=== PATIENT | female | born 1970 | race Caucasian/White ===

== ENCOUNTER → 2016-10-08 | Outpatient (CLI) | payer OTHER ==
[2016-10-08 18:36] LABS: Basophils % (A) 0 %; CH 27.8; CHCM 31.2; Eosinophils # (A) 0.2 k/uL (0-0.7); Eosinophils % (A) 2 %; HCT 45.1 % (34.0-46.0); HDW 2.22; HGB 14.2 gm/dL (11.4-16.0); Luc # (Auto) 0.17; Luc % (Auto) 2; Lymphocytes # (A) 2.1 k/uL (1.0-4.8); Lymphocytes % (A) 28 %; MCH 28.3 pg (25.0-35.0); MCHC 31.6 g/dL (31.0-37.0); MCV 89.5 fL (80.0-100.0); Mean Platelet Volume 8.2; Monocytes # (A) 0.4 k/uL (0-1.0); Monocytes % (A) 5 %; Neutrophils # (A) 4.8 k/uL (1.3-7.7); Neutrophils % (A) 63 %; RBC 5.03 m/uL (3.80-5.40); RDW 12.9 % (11.5-15.5); WBC 7.6 k/uL (3.8-10.6); WBC (Perox) 7.69
[2016-10-08 18:44] LABS: ALT 63 U/L (9-52); AST 43 U/L (14-36); Alkaline Phosphatase 154 U/L (38-126); Anion Gap 14 mmol/L; Blood Urea Nitrogen 14 mg/dL (7-17); Carbon Dioxide 28 mmol/L (22-30); Chloride 101 mmol/L (98-107); Cholesterol 216 mg/dL (<200); Glucose 81 mg/dL (74-99); HDL Cholesterol 76 mg/dL (40-60); Non-African American GFR(MDRD) >60 (>60 ml/min/1.73 sqM); Potassium 4.5 mmol/L (3.5-5.1); Sodium 143 mmol/L (137-145); Total Bilirubin 0.5 mg/dL (0.2-1.3); Total Protein 8.1 g/dL (6.3-8.2); Triglycerides 69 mg/dL (<150)
[2016-10-08 20:13] LABS: Hemoglobin A1C 5.4 % (4.2-6.1)
== END | disposition home or self-care (01) ==
LOC: MMGSC 11:49
PROVIDERS: ATTEND Family Medicine
DX: Z02.6 Encounter for examination for insurance purposes (principal)
CPT/HCPCS: 36415; 80053; 80061; 83036; 84439; 84443; 85025

== ENCOUNTER → 2016-10-16 | Outpatient (CLI) | payer OTHER | END | disposition home or self-care (01) | LOC: MMGSC 17:05 | PROVIDERS: ATTEND Family Medicine | DX: Z00.00 Encounter for general adult medical examination without abnormal findings (principal) | CPT/HCPCS: 80307 ==

== ENCOUNTER → 2016-11-11 | Outpatient (CLI) | payer OTHER ==
[2016-11-11 14:54] VITALS: BMI 38.9
== END | disposition home or self-care (01) ==
LOC: DBWHC3 12:59
PROVIDERS: ATTEND Family Medicine
DX: R94.5 Abnormal results of liver function studies (principal)
CPT/HCPCS: 97802

== ENCOUNTER → 2017-08-06 | Outpatient (CLI) | payer OTHER ==
--- NOTE | 2017-08-06 20:34 | MR ---
EXAMINATION TYPE: MR knee RT wo con DATE OF EXAM: 08/06/2017 COMPARISON: Plain film 07/17/2017 HISTORY: Pain in right knee TECHNIQUE: Multiplanar, multisequence imaging of the right knee is performed without IV contrast. FINDINGS: MEDIAL MENISCUS: Posterior horn of the medial meniscus shows some linear increased signal which may e xtend to the articular surface LATERAL MENISCUS: Posterior horn of the lateral meniscus shows some linear increased signal, sagittal image 19, difficult to exclude extension to the articular surface at the level of the body CRUCIATE LIGAMENTS: The anterior and posterior cruciate ligaments are intact and unremarkable. COLLATERAL LIGAMENTS: The medial collateral ligament and lateral collateral ligament complex are inta ct and unremarkable. EXTENSOR MECHANISM: Visualized quadriceps and patellar tendons are intact. EFFUSION: Small suprapatellar joint effusion POPLITEAL CYST: Small semimembranosus gastrocnemius cyst is present TRICOMPARTMENT SPACES: Maintained. 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 OTHER: Some mild subcutaneous edema is present medially IMPRESSION: Findings suspicious for tears within the posterior horn of the medial meniscus, possibly lateral meni scus body as described. Some chondromalacia suspected in the posterior patella. Joint effusion. Small semimembranosus gastrocnemius cyst, edema the subcutaneous tissues especially at the medial aspect a nteriorly
== END ==
LOC: RADMRIMAIN 18:08
PROVIDERS: ATTEND Orthopaedic Surgery
DX: M94.261 Chondromalacia, right knee (principal); M25.461 Effusion, right knee

== ENCOUNTER 2017-11-22 11:47 | Emergency (ER) | payer OTHER ==
[2017-11-22 12:00] VITALS: TEMP 97.9
[2017-11-22] MEDS ORDERED: ALBUTEROL NEBULIZED 2.5 MG/3 ML INHALATION STA (12:13)
--- NOTE | 2017-11-22 12:33 | ED ---
URI HPI - General Chief Complaint: Upper Respiratory Infection Stated Complaint: URI Time Seen by Provider: 11/22/17 12:03 Source: patient, RN notes reviewed Mode of arrival: ambulatory Limitations: no limitations - History of Present Illness Initial Comments: This is a 47-year-old female presents emergency Department chief complaint cough congestion for 6 days. Patient states started some and I was seen in urgent care on Friday was given azithromycin and Tamiflu. Patient states that she didn't medications but has not had any change in her symptoms. She denies using any ntob-ren-[id number] cough and cold medications. She states that she just wants feel better and she has not tried anything other than prescriptions given. Patient reports no fever no chills. Denies any chest pain, shortness breath, nausea, vomiting. Denies any pleuritic chest pain. - Related Data Home Medications Medication Instructions Recorded Confirmed Omeprazole [PriLOSEC] 20 mg PO BID PRN 06/29/15 06/30/15 Previous Rx's Medication Instructions Recorded Promethaz-Cod 6.25-10 mg/5 ml 5 ml PO Q6HR PRN #120 ml 11/22/17 [Phenergan with Codeine] predniSONE 50 mg PO DAILY #5 tab 11/22/17 Allergies Allergy/AdvReac Type Severity Reaction Status Date / Time No Known Allergies Allergy Verified 06/29/15 14:46 Review of Systems ROS Statement: Those systems with pertinent positive or pertinent negative responses have been documented in the HPI. ROS Other: All systems not noted in ROS Statement are negative. Past Medical History Past Medical History: GERD/Reflux History of Any Multi-Drug Resistant Organisms: None Reported Past Surgical History: Orthopedic Surgery Additional Past Surgical History / Comment(s): right knee,nasal polyps removed Past Anesthesia/Blood Transfusion Reactions: No Reported Reaction Past Psychological History: No Psychological Hx Reported Smoking Status: Never smoker Past Alcohol Use History: None Reported Past Drug Use History: None Reported - Past Family History Father Family Medical History: Cancer Additional Family Medical History / Comment(s): lung Mother Family Medical History: No Reported History General Exam Limitations: no limitations General appearance: alert, in no apparent distress Head exam: Present: atraumatic, normocephalic, normal inspection Eye exam: Present: normal appearance, PERRL, EOMI. Absent: scleral icterus, conjunctival injection, periorbital swelling ENT exam: Present: normal exam, mucous membranes moist Neck exam: Present: normal inspection, full ROM. Absent: tenderness, meningismus, lymphadenopathy Respiratory exam: Present: normal lung sounds bilaterally. Absent: respiratory distress, wheezes, rales, rhonchi, stridor Cardiovascular Exam: Present: regular rate, normal rhythm, normal heart sounds. Absent: systolic murmur, diastolic murmur, rubs, gallop, clicks GI/Abdominal exam: Present: soft, normal bowel sounds. Absent: distended, tenderness, guarding, rebound, rigid Skin exam: Present: warm, dry, intact, normal color. Absent: rash Course Vital Signs 11/22/17 11/22/17 11/22/17 11:56 12:25 12:28 Temperature 97.9 F Pulse Rate 111 H 110 H Respiratory 18 20 Rate Blood Pressure 115/73 O2 Sat by Pulse 97 Oximetry 11/22/17 12:36 Temperature Pulse Rate 112 H Respiratory Rate Blood Pressure O2 Sat by Pulse Oximetry Medical Decision Making - Medical Decision Making This a 47-year-old female Returned to Complaint of Cough Congestion. Patient Has Been Sick for 6 Days She Was Treated Initially Wasn't Referred for 4 Hours. Patient Chest X-Ray Is Negative This Time. Patient Has Been on azithromycin and Tamiflu. Patient most likely has viral bronchitis. Patient sent steroids, cough suppressant return parameters were discussed. Disposition Clinical Impression: Acute viral bronchitis Disposition: HOME SELF-CARE Condition: Stable Instructions: Acute Bronchitis (ED) Additional Instructions: Please return to the Emergency Department if symptoms worsen or any other concerns. Prescriptions: predniSONE 50 mg PO DAILY #5 tab Promethaz-Cod 6.25-10 mg/5 ml [Phenergan with Codeine] 5 ml PO Q6HR PRN #120 ml PRN Reason: Cough Referrals: Autumn Bang MD [Primary Care Provider] - 1-2 days Time of Disposition: 12:52
--- NOTE | 2017-11-22 12:36 | XR ---
EXAMINATION TYPE: XR chest 2V DATE OF EXAM: 11/22/2017 HISTORY: Cough/pain. REFERENCE: Previous study dated 09/21/2012. FINDINGS: The lungs remain clear. Pleural spaces are clear. The heart is not enlarged. IMPRESSION: NORMAL CHEST.
[2017-11-22 13:25] VITALS: BP 116/63; PULSE 104; RESP 16
== END 2017-11-22 13:25 | disposition home or self-care (01) ==
LOC: EC 11:47
DX: J20.8 Acute bronchitis due to other specified organisms (principal)
CPT/HCPCS: 71046; 94640; 99283

== ENCOUNTER → 2018-07-15 | Outpatient (CLI) | payer OTHER ==
[2018-07-15 09:04] LABS: HGB 13.4 gm/dL (11.4-16.0); MCH 27.8 pg (25.0-35.0); MCHC 31.9 g/dL (31.0-37.0); MCV 87.1 fL (80.0-100.0); Mean Platelet Volume 7.4; Platelet Count 318 k/uL (150-450); RBC 4.82 m/uL (3.80-5.40); RDW 13.6 % (11.5-15.5); WBC 6.5 k/uL (3.8-10.6)
[2018-07-15 15:51] LABS: Albumin 4.7 g/dL (3.80-4.90); Albumin/Globulin Ratio 1.96 (1.20-2.10); Anion Gap 7.1 mmol/L (4.00-12.00); Carbon Dioxide 30.9 mmol/L (21.6-31.8); Globulin 2.4 g/dL (2.1-3.7); Potassium 4.2 mmol/L (3.5-5.5); Total Bilirubin 0.3 mg/dL (0.2-1.2); Total Protein 7.1 g/dL (6.2-8.2)
== END | disposition home or self-care (01) ==
LOC: LABWHC1 08:18
PROVIDERS: ATTEND Family Medicine
DX: Z00.00 Encounter for general adult medical examination without abnormal findings (principal)
CPT/HCPCS: 36415; 80053; 80061; 84443; 85027

== ENCOUNTER → 2018-09-22 | Outpatient (CLI) | payer OTHER | END | disposition home or self-care (01) | LOC: LABPAT 08:38 | PROVIDERS: ATTEND Orthopaedic Surgery | DX: Z01.812 Encounter for preprocedural laboratory examination (principal); M23.91 Unspecified internal derangement of right knee | CPT/HCPCS: 36415; 80051; 85025 ==

== ENCOUNTER 2018-10-07 08:01 | Day surgery (SDC) | payer OTHER ==
[2018-09-22 09:27] LABS: Potassium 4.3 mmol/L (3.5-5.1)
[2018-09-22 09:28] LABS: Basophils % (A) 0 %; Eosinophils # (A) 0.1 k/uL (0-0.7); Eosinophils % (A) 1 %; HCT 43.1 % (34.0-46.0); HGB 13.5 gm/dL (11.4-16.0); Lymphocytes # (A) 1.6 k/uL (1.0-4.8); Lymphocytes % (A) 27 %; MCH 26.8 pg (25.0-35.0); MCHC 31.3 g/dL (31.0-37.0); MCV 85.7 fL (80.0-100.0); Mean Platelet Volume 7.1; Monocytes # (A) 0.4 k/uL (0-1.0); Monocytes % (A) 6 %; Neutrophils # (A) 3.7 k/uL (1.3-7.7); Neutrophils % (A) 63 %; Platelet Count 326 k/uL (150-450); RBC 5.03 m/uL (3.80-5.40); RDW 13.6 % (11.5-15.5); WBC 5.9 k/uL (3.8-10.6)
[2018-10-05 15:51] VITALS: BMI 37.4
--- NOTE | 2018-10-06 13:25 | HP ---
HISTORY AND PHYSICAL Surgery is scheduled for 10/07/2018 Deisy Shook is a 47-year-old patient seen with progressive right knee pain. Treatment options were discussed with her. She elected to proceed with arthroscopy. Consent was obtained. PAST MEDICAL HISTORY: Gastroesophageal reflux disease. PAST SURGICAL HISTORY: Left knee arthroscopy. DAILY MEDICATIONS: Pantoprazole. ALLERGIES: None. SOCIAL HISTORY: She denies current tobacco use. PHYSICAL EVALUATION OF THE RIGHT KNEE: Range of motion is 0 to 120 degrees. Moderate effusion. Tenderness along the medial and lateral joint lines. Positive medial Guevara's. Crepitus medial and patellar compartments range of motion. Ligaments stable. Hip rotation without pain. Her distal neurovascular exam is intact. Right knee radiographs revealed moderate osteoarthritis. A right knee MRI revealed medial and lateral meniscal tears and a joint effusion. IMPRESSION: 1. Internal derangement right knee with medial and lateral meniscal tears. 2. Gastroesophageal reflux disease. PLAN: Right knee arthroscopy with partial meniscectomy and debridement. MMODL / IJN: [id number] /
[~2018-10-07 08:01] MED LIST: DEXAMETHASONE SOD PHOSPHATE 10 MG/ML 1 ML VIAL IV ONE; LACTATED RINGERS 1,000 ML IV SCH; LIDOCAINE 1% 20 ML VIAL (10MG/ML) FOR IV START INTRADERMA PRN; MIDAZOLAM (PF) 2 MG/2 ML VIAL IV PRN; ONDANSETRON 4 MG/2 ML VIAL IVP ONE; SCOPOLAMINE 1.5MG/72HR PATCH TRANSDERM ONE; ceFAZolin IN SWFI 2 GM/20 ML SYRINGE IVP ONE
[2018-10-07] MEDS ORDERED: SUCCINYLCHOLINE CHLORIDE 100 MG/5 ML SYR IV ONE (09:29)
[2018-10-07] MEDS ORDERED: MIDAZOLAM 2 MG/2 ML VIAL ONE (09:29)
[2018-10-07] MEDS ORDERED: fentaNYL (PF) 50 MCG/ML 2 ML AMP ONE (09:29)
[2018-10-07] MEDS ORDERED: PROPOFOL 10 MG/ML 20 ML VIAL IV ONE (09:29)
[2018-10-07] MEDS ORDERED: LIDOCAINE 1% INJ 10MG/ML (20 ML MDV) ONE (09:29)
[2018-10-07] MEDS ORDERED: BUPIVACAINE (PF) 0.25% 30 ML VIAL INTRAARTIC ONE (09:34)
[2018-10-07] MEDS: HYDROmorphone 0.5 MG/0.5 ML SYRINGE IVP PRN ×4 (10:25→10:56)
[2018-10-07] MEDS ORDERED: KETOROLAC 30 MG/ML 1 ML VIAL IVP ONE (10:30)
[2018-10-07] MEDS ORDERED: diphenhydrAMINE 50 MG/ML 1 ML VIAL IVP ONE (10:32)
[2018-10-07 10:34] VITALS: TEMP 96.8
--- NOTE | 2018-10-07 10:37 | P.OP ---
Date of Procedure: 10/07/18 Preoperative Diagnosis: Internal derangement right knee Postoperative Diagnosis: 1. Tear medial meniscus right knee 2. 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 Grade 1/2 chondromalacia patella right knee 4. Reactive synovitis medial, lateral and suprapatellar compartments right knee Procedure(s) Performed: 1. Arthroscopic partial medial meniscectomy right knee 2. Arthroscopic chondroplasty medial femoral condyle right knee 3. Arthroscopic chondroplasty patella right knee 4. Arthroscopic partial synovectomy medial, lateral and suprapatellar compartments Anesthesia: BENYA, local Surgeon: Kevin Womack Estimated Blood Loss (ml): 5 Pathology: none sent Condition: stable Disposition: PACU Indications for Procedure: 47-year-old patient seen with progressive right knee pain. After having treatment options discussed, she elected to proceed with arthroscopy Operative Findings: See description of procedure Description of Procedure: Patient was taken to the operative suite. Patient underwent a general anesthetic by the department of anesthesia. Patient was given preoperative antibiotics. The right lower extremity was placed in a well-padded arthroscopic leg bates. The right leg was prepped and draped in the normal sterile orthopedic fashion. A lateral parapatellar and suprapatellar incision was made. Trochars were inserted. Arthroscopy was initiated. Suprapatellar pouch revealed diffuse thick reactive synovitis. The patellofemoral joint appeared to articulate congruently. There was grade 1/2 chondromalacia with osteochondral tears present. The scope was guided into the medial gutter. No loose bodies or plica were identified .The scope was then guided into the medial compartment. A medial parapatellar incision was made. Trocar inserted followed by probe. There was a complex tear involving the posterior medial meniscus. There was an area of grade 1/2 chondromalacia medial femoral condyle with some osteochondral flap tears present. There was thick reactive synovitis anteriorly. I performed a partial medial meniscectomy down to stable tissue. I performed a chondroplasty of the medial femoral condyle down to stable tissue. I performed a partial synovectomy decompressing that reactive synovitis. The residual meniscus was found to be stable. The residual osteochondral surface was stable. There was good decompression of synovitis. Scope and probe were then guided into the intercondylar notch. Cruciates were identified, probed and found to be stable. The scope and probe were then guided into lateral compartment. Lateral meniscus was probed and found to be stable. The osteochondral surfaces were stable. There was thick reactive synovitis anteriorly. I performed a partial synovectomy decompressing that reactive synovitis. There was good decompression of the synovitis. The scope was in guided back into the suprapatellar compartment. I introduced a motorized shaver into the super patellar compartment. I debrided some piecemeal fragments of meniscus I encountered. I performed a chondroplasty of the patella. I performed a partial synovectomy decompressing reactive synovitis. The residual osteochondral surface was stable. There was good decompression of synovitis. Instruments were now removed from the joint. The joint was infiltrated with .25% Marcaine. Steri-Strips were applied to the portal sites. Sterile dressings were applied. The patient was placed into a KRISHAN hose. No tourniquet was utilized. The patient was awakened, transferred to a bed and taken to recovery stable satisfactory condition.
[2018-10-07 12:15] VITALS: RESP 16
[2018-10-07] MEDS ORDERED: HYDROcodone/APAP 5-325MG 1 EACH TAB PO ONE (12:27)
[2018-10-07 13:14] VITALS: BP 110/66; PULSE 72
== END 2018-10-07 13:34 | disposition home or self-care (01) ==
LOC: OR 08:01
PROVIDERS: ATTEND Orthopaedic Surgery
DX: M23.321 Other meniscus derangements, posterior horn of medial meniscus, right knee (principal); K21.9 Gastro-esophageal reflux disease without esophagitis; M94.261 Chondromalacia, right knee; M65.861 Other synovitis and tenosynovitis, right lower leg; Z79.899 Other long term (current) drug therapy
CPT/HCPCS: 81025; 29881; J2250; J1200; J1100; J2405; J2001; J3010; J1885; J0330; J2704; J1170; J0690; 36415; 80051; 85025

== ENCOUNTER 2021-05-04 21:48 | Emergency (ER) | payer BC, OTHER ==
[2021-05-04 22:17] VITALS: BP 114/78; PULSE 99; RESP 20; TEMP 98.7
--- NOTE | 2021-05-04 23:10 | XR ---
EXAMINATION TYPE: XR foot complete LT DATE OF EXAM: 05/04/2021 COMPARISON: NONE HISTORY: Foot pain TECHNIQUE: 3 views FINDINGS: Metatarsals are intact. I see no fracture nor dislocation. Joint spaces are normal. IMPRESSION: Negative left foot exam.
--- NOTE | 2021-05-04 23:11 | XR ---
EXAMINATION TYPE: XR ankle complete LT DATE OF EXAM: 05/04/2021 COMPARISON: NONE HISTORY: Ankle pain TECHNIQUE: 3 views FINDINGS: Ankle mortise is anatomic. I see no fracture nor dislocation. Joint spaces are normal. IMPRESSION: Negative left ankle exam. Calcaneal spurring noted.
--- NOTE | 2021-05-05 00:33 | ED ---
General Adult HPI - General Chief complaint: Extremity Injury, Lower Stated complaint: L foot pain Time Seen by Provider: 05/05/21 00:04 Source: patient Mode of arrival: ambulatory Limitations: no limitations - History of Present Illness Initial comments: 50-year-old female presents to the emergency department with a chief complaint of left ankle pain. Patient reports the incident occurred several hours prior to arrival. Patient reports she was waiting to see if she is able to "walk it off". Patient reports likely she suffered an inversion injury most of the pain is located along the lateral malleolus in the left fifth metatarsal but no midfoot tenderness. Patient reports there is no erythema swelling or ecchymosis. Reports taking awmd-[id number] analgesics with some improvement of symptoms. Denies any paresthesias or weakness to the region. - Related Data Previous Rx's Medication Instructions Recorded Hydrocodone/Acetaminophen [[place] 1 each PO Q6HR PRN #21 tab 10/07/18 5-325] Allergies Allergy/AdvReac Type Severity Reaction Status Date / Time No Known Allergies Allergy Verified 05/04/21 22:17 Review of Systems ROS Statement: Those systems with pertinent positive or pertinent negative responses have been documented in the HPI. ROS Other: All systems not noted in ROS Statement are negative. Past Medical History Past Medical History: GERD/Reflux History of Any Multi-Drug Resistant Organisms: None Reported Past Surgical History: Orthopedic Surgery Additional Past Surgical History / Comment(s): right knee,nasal polyps removed Past Anesthesia/Blood Transfusion Reactions: No Reported Reaction Past Psychological History: No Psychological Hx Reported Smoking Status: Never smoker Past Alcohol Use History: None Reported Past Drug Use History: None Reported - Past Family History Father Family Medical History: Cancer Additional Family Medical History / Comment(s): lung Mother Family Medical History: No Reported History General Exam Limitations: no limitations General appearance: alert, in no apparent distress Head exam: Present: atraumatic, normocephalic, normal inspection Eye exam: Present: normal appearance, PERRL, EOMI Pupils: Present: normal accommodation ENT exam: Present: normal exam, normal oropharynx, mucous membranes moist Neck exam: Present: normal inspection, full ROM. Absent: tenderness, lymphadenopathy Respiratory exam: Present: normal lung sounds bilaterally. Absent: respiratory distress Cardiovascular Exam: Present: regular rate, normal rhythm, normal heart sounds. Absent: systolic murmur Extremities exam: Present: normal inspection, full ROM, tenderness (Tenderness along the fifth metatarsal left lateral malleolus. No midfoot tenderness. No ecchymosis or erythema or significant swelling.), normal capillary refill, other (Palpable DP and PT bilaterally). Absent: pedal edema, joint swelling, calf tenderness Back exam: Present: normal inspection, full ROM Neurological exam: Present: alert, oriented X3 Psychiatric exam: Present: normal affect, normal mood Skin exam: Present: warm, dry, intact, normal color Course Vital Signs 05/04/21 22:09 Temperature 98.7 F Pulse Rate 99 Respiratory 20 Rate Blood Pressure 114/78 O2 Sat by Pulse 95 Oximetry Medical Decision Making - Medical Decision Making 50-year-old female presenting to emergency Department with a chief complaint of left foot injury. On physical examination, she is neurovascularly intact. Tenderness over the left fifth metatarsal left lateral malleolus. X-rays of the ankle or foot are unremarkable. Patient educated on conservative management. I advised her to follow-up with lead sustainability specialist. Return parameters were thoroughly discussed with patient was unsteady and agreeable. Case discussed physician. Disposition Clinical Impression: Sprain of foot, left Disposition: HOME SELF-CARE Condition: Stable Instructions (If sedation given, give patient instructions): Foot Sprain (ED) Additional Instructions: Please return to the Emergency Department if symptoms worsen or any other concerns. Follow with lead sustainability specialist Is patient prescribed a controlled substance at d/c from ED?: No Referrals: Autumn Bang MD [Primary Care Provider] - 1-2 days Bert Hamlin MD [Medical Doctor] - 1-2 days Time of Disposition: 00:33
== END 2021-05-05 00:58 | disposition home or self-care (01) ==
LOC: EC 21:48
DX: S93.602A Unspecified sprain of left foot, initial encounter (principal); K21.9 Gastro-esophageal reflux disease without esophagitis; X58.XXXA Exposure to other specified factors, initial encounter
CPT/HCPCS: 99283

== ENCOUNTER → 2023-07-02 | Outpatient (CLI) | payer OTHER ==
--- NOTE | 2023-07-02 14:47 | P.SLEEP ---
History of Present Illness DATE: 07/02/2023 CONSULTATION/NEW PATIENT EVALUATION HISTORY OF PRESENT ILLNESS/SLEEP-WAKE EVALUATION: 52-year-old lady had been evaluated in the sleep center for possible obstructive sleep apnea hypopnea syndrome. SLEEP SCHEDULE: Usually sleep schedule from 10 PM to 4:50 AM on weekdays and from 11 PM to 7 AM on weekend. FALLING ASLEEP: Sometimes patient has difficulties with the falling to sleep related to episodes of choking while she is on back position. DURING SLEEP: Patient snores and has witnessed episodes of stop breathing during the sleep. Positive history of choking, episodes of gasping for air, heartburn, dry mouth. Patient wakes up from sleep up to 5 times with up to 5 episodes of nocturia. No history of hypnogogical hallucinations, sleep paralysis, or cataplexy. DURING THE DAY/WAKE STATE: In the morning patient wake up tired, feels sleepiness during the day. Kulm sleepiness scale is 7 today and 10 in primary care physician office. Patient usually doesn't take naps. PAST MEDICAL HISTORY: Acid reflux, arthritis. PAST SURGICAL HISTORY: Right knee surgery about 5 years ago. MEDICATIONS: None at the present time. SOCIAL HISTORY: Negative for smoking or using alcohol. FAMILY HISTORY: Arthritis. REVIEW OF SYSTEMS: Snoring, multiple awakenings from sleep, sleepiness during the day. No fevers. No double vision. No recent chest pain. No shortness of breath. No abdominal pain. No bleeding episodes. No blood in urine. No seizure episodes. PHYSICAL EXAMINATION: GENERAL: A pleasant patient without any distress. VITAL SIGNS: BP 124/84 , HR 101 , RR 12 , weight 258.0 pounds, height 5 foot 4.5 inches, body mass index 43.6 . HEENT: PERRLA, EOMI. Evaluation of oropharynx showed tongue protrudes midline, low position of soft palate Mallampati 4. NECK: Supple. No JVD. Thyroid is not palpable. 15.5 inches in circumference. LUNGS: Clear to percussion and to auscultation. Good air exchange. No wheezing or rhonchi. HEART: S1, S2 regular. No murmurs, gallops or rubs. ABDOMEN: Soft and nontender. Bowel sounds are present. No organomegaly appreciated. Obese. EXTREMITIES: No clubbing or cyanosis. 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 Cranial nerves 2 to 7 intact. There is no fasciculation or atrophy noted. No focal deficits observed. ASSESSMENT: 1. Loud snoring, witnessed episodes of stop breathing during the sleep, multiple awakenings from sleep with choking nocturia, extremely low position of soft palate Mallampati 4. Obstructive sleep apnea-hypopnea syndrome. 2. Obesity, body mass index 43.6. 3. Acid reflux. 4. History of arthritis. PLAN: 1. Polysomnography for evaluation of patient's breathing during sleep. 2. CPAP/BiPAP titration if sleep study confirms obstructive sleep apnea- hypopnea syndrome. 3. Preferable position during sleep on the side. 4. No driving if patient feels any sleepiness. Patient is aware of civil and criminal liability for unsafe driving. 5. Sleep hygiene with regular sleep time for at least 7.5-8 hours. 6. Watching and losing weight. Thank you very much for referring this patient for consultation. Sincerely, Pernell Oconnell MD, PhD, FAASM. Diplomat of [place] [employer], Sleep Medicine Board by [place] [employer] [place] [employer] Sports Medicine [place] [place] Past Medical History Past Medical History: GERD/Reflux History of Any Multi-Drug Resistant Organisms: None Reported Past Surgical History: Orthopedic Surgery Additional Past Surgical History / Comment(s): right knee,nasal polyps removed Past Anesthesia/Blood Transfusion Reactions: No Reported Reaction Past Psychological History: No Psychological Hx Reported Smoking Status: Never smoker Past Alcohol Use History: None Reported Past Drug Use History: None Reported - Past Family History Father Family Medical History: Cancer Additional Family Medical History / Comment(s): lung Mother Family Medical History: No Reported History Medications and Allergies Home Medications Medication Instructions Recorded Confirmed Type Hydrocodone/Acetaminophen [[place] 1 each PO Q6HR PRN #21 tab 10/07/18 Rx 5-325] Allergies Allergy/AdvReac Type Severity Reaction Status Date / Time No Known Allergies Allergy Verified 05/04/21 22:17 Sleep Note - Sleep Note Sleep Note: Temperature: Pulse Rate: Respiratory Rate: Blood Pressure: SpO2: Height: Weight: BMI: Neck Circumference:
== END ==
LOC: 3 N SLEEP 13:49
PROVIDERS: ATTEND Internal Medicine
DX: G47.33 Obstructive sleep apnea (adult) (pediatric) (principal); R06.83 Snoring; G47.36 Sleep related hypoventilation in conditions classified elsewhere; E66.9 Obesity, unspecified; K21.9 Gastro-esophageal reflux disease without esophagitis; M19.90 Unspecified osteoarthritis, unspecified site; Z68.41 Body mass index [BMI] 40.0-44.9, adult
CPT/HCPCS: 99211

== ENCOUNTER → 2023-07-31 | Outpatient (CLI) | payer OTHER ==
--- NOTE | 2023-08-06 09:27 | MM ---
Reason for Exam: Screening (asymptomatic). Patient History: Menarche at age 12. First Full-Term at age 25. Postmenopausal. Risk Values: Shahla 5 year model risk: 1.2%. NCI Lifetime model risk: 9.6%. Prior Study Comparison: No prior studies available for comparison. Tissue Density: The breast tissue is almost entirely fat. Findings: Analyzed By CAD. Asymmetry left breast posterior depth laterally on CC view 9.2 cm from the nipple. Right breast: There is no suspicious group of microcalcifications or new suspicious mass. Overall Assessment: Incomplete: need additional imaging evaluation, BI-RAD 0 Management: Diagnostic Mammogram of the left breast. [facility] will attempt to contact patient to return for supplemental views and ultrasound if indicated. Patient should continue monthly self-breast exams. A clinical breast exam by your physician is recommended on an annual basis. This exam should not preclude additional follow-up of suspicious palpable abnormalities. Note on Shahla scores and lifetime risk: 1. A Shahla score greater than 3% is considered moderate risk. If this is the case, consider specialist referral to assess eligibility for a risk reducing agent. 2. If overall lifetime risk for the development of breast cancer is 20% or higher, the patient may qualify for future screening with alternating mammogram and breast MRI. Electronically signed and approved by: Jose C Guaman DO
== END | disposition home or self-care (01) ==
LOC: RADMAMWWP 16:27
PROVIDERS: ATTEND Family Medicine
DX: Z12.31 Encounter for screening mammogram for malignant neoplasm of breast (principal); Z78.0 Asymptomatic menopausal state
CPT/HCPCS: 77067

== ENCOUNTER → 2023-08-22 | Outpatient (CLI) | payer OTHER ==
--- NOTE | 2023-08-25 12:07 | P.PCN ---
Description of Procedure: CLINICAL: A home sleep apnea test has been done for confirmation of possible obstructive sleep apnea-hypopnea syndrome. DESCRIPTION OF PROCEDURE: RESULTS: Recording time was 8 hours 19 minutes. Evaluation time was 7 hours 57 minutes. Evaluation time is sufficient for making conclusion about results of the test. Raw data of sleep recording has been reviewed and is adequate. Respiratory channel showed 8 apneas and 329 hypopneas. Multiple unscorable respiratory events noted. Apnea-hypopnea index was 42.4 per hour. Pulse rate in the range between minimum 60, maximum 118, average 83 by computer calculation. Lowest desaturation was 68 %. IMPRESSION: 1. Severe Obstructive Sleep Apnea Hypopnea Syndrome. Please see other impressions from consultation. PLAN: 1. The patient should have PAP titration for correction of respiratory abnormallities during sleep. 2. Sleep hygiene with regular time in bed for at least 8 hours. 3. Watching weight. 4. No driving if feeling any sleepiness. Thank you very much for allowing me to participate in the management of your patient. Sincerely, Pernell Oconnell MD, PhD, FAASM Diplomat of [place] [employer] Sleep Medicine Board of [place] [employer] Incinerator Attendant [facility] [place]
== END ==
LOC: 3 N SLEEP 12:56
PROVIDERS: ATTEND Internal Medicine
DX: G47.33 Obstructive sleep apnea (adult) (pediatric) (principal)

== ENCOUNTER → 2023-08-22 | Outpatient (CLI) | payer OTHER ==
--- NOTE | 2023-08-22 13:50 | MM ---
Reason for Exam: Additional evaluation requested from abnormal screening. Last screening mammogram was performed less than 1 month ago. Patient History: Menarche at age 12. First Full-Term at age 25. Postmenopausal. Risk Values: Shahla 5 year model risk: 1.2%. NCI Lifetime model risk: 9.6%. Prior Study Comparison: 07/31/2023 Bilateral MG screening mammo w CAD, [facility]. Tissue Density: Left: There are scattered fibroglandular densities. Findings: Analyzed By CAD. There is a small oval density upper outer left breast 9 cm from the nipple measuring 0.3 cm. Overall Assessment: Incomplete: need additional imaging evaluation, BI-RAD 0 Management: Diagnostic Breast Ultrasound of the left breast. A negative mammogram report should not preclude additional follow up of suspicious palpable abnormalities. Patient should continue monthly self breast exam. A clinical breast exam by your physician is recommended on an annual basis and results should be correlated with mammographic findings. Electronically signed and approved by: Torsten Steele D.O. Radiologis
--- NOTE | 2023-08-22 14:59 | USB ---
Reason for Exam: Additional evaluation requested from abnormal screening. Patient History: Menarche at age 12. First Full-Term at age 25. Postmenopausal. Risk Values: Shahla 5 year model risk: 1.2%. NCI Lifetime model risk: 9.6%. Technique: Method: Targeted. Prior Study Comparison: 07/31/2023 Bilateral MG screening mammo w CAD, [facility]. Findings: The upper outer quadrant of the left breast, the axilla of the left breast and the retroareolar of the left breast were scanned. No solid or cystic masses are identified. No abnormality to correlate with the mammographic finding. Overall Assessment: Negative, BI-RAD 1 Management: Diagnostic Mammogram of the left breast in 6 months. A clinical breast exam by your physician is recommended on an annual basis and results should be correlated with mammographic findings. This exam should not preclude additional follow-up of suspicious palpable abnormalities. Results were given to the patient verbally at the time of exam. Electronically signed and approved by: Torsten Steele D.O. Radiologis
== END | disposition home or self-care (01) ==
LOC: RADMAMWWP 13:23
PROVIDERS: ATTEND Family Medicine
DX: R92.322 Mammographic fibroglandular density, left breast (principal); Z78.0 Asymptomatic menopausal state
CPT/HCPCS: 77061; 77065

== ENCOUNTER → 2024-01-23 | Outpatient (CLI) | payer OTHER ==
--- NOTE | 2024-01-29 00:02 | MR ---
EXAMINATION TYPE: MR knee RT wo con DATE OF EXAM: 01/23/2024 COMPARISON: Prior MRI right knee August 06, 2017. Outside right knee x-ray January 12, 2014 HISTORY: Right knee pain and swelling x6 months, Hx knee surgery TECHNIQUE: Multiplanar, multisequence images of the knee is performed without IV contrast. FINDINGS: MEDIAL MENISCUS: Oblique signal posterior horn extends to inferior articular surface similar to prior . LATERAL MENISCUS: Horizontal increased signal redemonstrated coronal image 21. CRUCIATE LIGAMENTS: The anterior and posterior cruciate ligaments are intact and unremarkable. COLLATERAL LIGAMENTS: The medial collateral ligament and lateral collateral ligament complex are inta ct and unremarkable. EXTENSOR MECHANISM: Visualized quadriceps and patellar tendons are intact. EFFUSION: Small size suprapatellar joint effusion. POPLITEAL CYST: Small size popliteal/gipson cyst redemonstrated. TRICOMPARTMENT SPACES: [id number] tricompartmental joint space loss and spurring is again seen. CARTILAGE: Tricompartment cartilaginous loss is seen. Chondromalacia patella with cartilaginous loss in the posterior patellar pole. BONE MARROW SIGNAL: No focal abnormal marrow signal is appreciated. OTHER: Diffuse subcutaneous edema redemonstrated. Findings are most prominent anterior superficial in frapatellar level. IMPRESSION: 1. Full-thickness oblique tear posterior horn of medial meniscus redemonstrated similar to prior. 2. Intrasubstance tear lateral meniscus redemonstrated similar to prior. 3. Fairly moderate tricompartment degenerative changes are present and more prominent versus prior MR I. 4. Stable small sized suprapatellar joint effusion. 5. Stable small sized popliteal cyst.
== END | disposition home or self-care (01) ==
LOC: RADMRIMAIN 19:06
PROVIDERS: ATTEND Orthopaedic Surgery
DX: S83.241A Other tear of medial meniscus, current injury, right knee, initial encounter (principal); S83.281A Other tear of lateral meniscus, current injury, right knee, initial encounter; M25.469 Effusion, unspecified knee; M71.21 Synovial cyst of popliteal space [Baker], right knee

== ENCOUNTER → 2024-02-28 | Outpatient (CLI) | payer OTHER ==
[2024-02-28 12:54] LABS: Basophils # (A) 0.05 X 10*3/uL (0.00-0.10); Basophils % (A) 0.7 %; Eosinophils # (A) 0.14 X 10*3/uL (0.04-0.35); Eosinophils % (A) 1.9 %; HCT 39.6 % (37.2-46.3); HGB 12.4 g/dL (12.0-15.0); Lymphocytes # (A) 1.74 X 10*3/uL (0.90-5.00); Lymphocytes % (A) 23.5 %; MCH 26.5 pg (27.0-32.0); MCHC 31.3 g/dL (32.0-37.0); MCV 84.6 FL (80.0-97.0); Mean Platelet Volume 11.5 FL (9.5-12.2); Monocytes # (A) 0.57 X 10*3/uL (0.20-1.00); Monocytes % (A) 7.7 %; NRBC Per 100 WBC 0 X 10*3/uL (0.00-0.01); Neutrophils # (A) 4.88 X 10*3/uL (1.80-7.70); Neutrophils % (A) 65.9 %; Platelet Count 321 X 10*3/uL (140-440); RBC 4.68 X 10*6/uL (4.10-5.20); RDW 14.3 % (11.5-14.5)
[2024-02-29 06:27] LABS: Anion Gap 9.6 mmol/L (4.00-12.00); Carbon Dioxide 26.4 mmol/L (21.6-31.8); Potassium 4.4 mmol/L (3.5-5.5)
== END | disposition home or self-care (01) ==
LOC: LABPAT 09:49
PROVIDERS: ATTEND Orthopaedic Surgery
DX: Z01.812 Encounter for preprocedural laboratory examination (principal); M23.91 Unspecified internal derangement of right knee
CPT/HCPCS: 80051; 85025

== ENCOUNTER 2024-03-03 06:03 | Day surgery (SDC) | payer OTHER ==
--- NOTE | 2024-03-02 14:18 | HP ---
HISTORY AND PHYSICAL DATE OF SCHEDULED SURGERY: 03/03/2024. HISTORY OF PRESENT ILLNESS: Deisy Shook is a 53-year-old patient, seen with progressive right knee pain. After treatment options were discussed, she elected to proceed with right knee arthroscopy. Consent was obtained. PAST MEDICAL HISTORY: Noncontributory. PAST SURGICAL HISTORY: Knee arthroscopy. DAILY MEDICATIONS: Tylenol. ALLERGIES: None. SOCIAL HISTORY: She denies tobacco use. PHYSICAL EVALUATION OF RIGHT KNEE: Range of motion is 0 to 130 degrees. Mild moderate effusion. Tenderness along the medial joint line. Positive medial Guevara's. Ligaments stable. Hip rotation without pain. Distal neurovascular exam intact. IMAGING STUDIES: Radiographs of the right knee revealed moderate osteoarthritis. MRI right knee medial meniscal tear, lateral meniscal tear, effusion, moderate osteoarthritis. IMPRESSION: Internal derangement of right knee with medial and lateral meniscal tears. PLAN: Right knee arthroscopy with partial medial/lateral meniscectomy and debridement. MMODL / IJN: [id number] /
[~2024-03-03 06:03] MED LIST changes: -DEXAMETHASONE SOD PHOSPHATE 10 MG/ML 1 ML VIAL IV ONE; -LACTATED RINGERS 1,000 ML IV SCH; +LIDOCAINE 1% (10MG/ML) FOR IV START INTRADERMA PRN; -LIDOCAINE 1% 20 ML VIAL (10MG/ML) FOR IV START INTRADERMA PRN; -MIDAZOLAM (PF) 2 MG/2 ML VIAL IV PRN; -ONDANSETRON 4 MG/2 ML VIAL IVP ONE; -SCOPOLAMINE 1.5MG/72HR PATCH TRANSDERM ONE; -ceFAZolin IN SWFI 2 GM/20 ML SYRINGE IVP ONE
[2024-03-03] MEDS ORDERED: MIDAZOLAM 2 MG/2 ML VIAL IV PRN (07:00)
[2024-03-03] MEDS ORDERED: HYDROmorphone 0.5 MG/0.5 ML SYRINGE IVP PRN (07:00)
[2024-03-03] MEDS: DEXAMETHASONE SOD PHOSPHATE 4 MG/ML 1 ML VIAL IV ONE (07:09)
[2024-03-03] MEDS: LACTATED RINGERS 1,000 ML IV SCH (07:09)
[2024-03-03] MEDS: ONDANSETRON 4 MG/2 ML VIAL IVP ONE (07:09)
[2024-03-03] MEDS: FAMOTIDINE 20 MG/2 ML VIAL IV STA (07:10)
[2024-03-03] MEDS: IV FLUID CONTINUATION 1,000 ML IV ONE (07:10)
[2024-03-03] MEDS ORDERED: fentaNYL (PF) 50 MCG/ML 2 ML AMP ONE (07:22)
[2024-03-03] MEDS ORDERED: LIDOCAINE 1% INJ 10MG/ML (20 ML MDV) ONE (07:22)
[2024-03-03] MEDS ORDERED: MIDAZOLAM 2 MG/2 ML VIAL ONE (07:22)
[2024-03-03] MEDS ORDERED: SUCCINYLCHOLINE CHLORIDE 200 MG/10 ML VIAL IV ONE (07:22)
[2024-03-03] MEDS ORDERED: PROPOFOL 10 MG/ML 20 ML VIAL IV ONE (07:22)
[2024-03-03] MEDS ORDERED: KETOROLAC 15 MG/ML 1 ML VIAL ONE (07:22)
[2024-03-03] MEDS: BUPIVACAINE (PF) 0.25% 30 ML VIAL INTRAARTIC ONE (07:25)
[2024-03-03 08:21] VITALS: TEMP 97.1
--- NOTE | 2024-03-03 08:27 | P.OP ---
Date of Procedure: 03/03/24 Preoperative Diagnosis: Internal derangement right knee Postoperative Diagnosis: 1. Tear medial and lateral meniscus right knee 2. Grade IV chondromalacia medial femoral condyle right knee 3. Grade IV chondromalacia femoral sulcus right knee 4. Reactive synovitis medial, lateral and suprapatellar compartments right knee 5. Grade II chondromalacia patella right knee Procedure(s) Performed: 1. Arthroscopic partial medial and lateral meniscectomy right knee 2. Arthroscopic microfracture medial femoral condyle right knee 3. Arthroscopic microfracture femoral sulcus right knee 4. Arthroscopic partial synovectomy medial, lateral and suprapatellar compartments right knee 5. Arthroscopic chondroplasty patella right knee Anesthesia: BENYA, local Surgeon: Kevin Womack Estimated Blood Loss (ml): 7 Pathology: none sent Condition: stable Disposition: PACU Indications for Procedure: 53-year-old patient seen with progressive right knee pain. After having treatment options discussed, she elected to proceed with arthroscopy. Operative Findings: See description of procedure Description of Procedure: Patient was taken to the operative suite. Patient underwent a general anesthetic by the department of anesthesia. Patient was given preoperative antibiotics. The right lower extremity was placed in a well-padded arthroscopic leg bates. The right leg was prepped and draped in the normal sterile orthopedic fashion. A lateral parapatellar and suprapatellar incision was made. Trochars were inserted. Arthroscopy was initiated. Suprapatellar pouch revealed diffuse thick reactive synovitis. The patellofemoral joint appeared to articular congruently. There was grade II chondromalacia of the patella with osteochondral flap tears and grade III/IV chondromalacia femoral sulcus with osteochondral flap tears. The scope was guided into the medial gutter. No loose bodies or plica were identified. The scope was then guided into the medial compartment. A medial parapatellar incision was made. Trocar inserted followed by probe. There was a tear involving the posterior horn and mid body medial meniscus. There was an area of grade III/IV chondromalacia medial femoral condyle with osteochondral flap tears. There were grade II chondromalacia changes medial tibial plateau. There was thick reactive synovitis anteriorly. I performed a partial medial meniscectomy getting down to stable meniscal tissue. I performed a chondroplasty of the medial femoral condyle getting down to stable osteochondral tissue. I performed a partial synovectomy decompressing the reactive synovitis anteriorly. I did note an area of grade IV chondromalacia involving medial femoral condyle measuring less than a centimeter. I introduced a microfracture awl and I performed a microfracture to that area penetrating the bone with resultant bleeding at the microfracture site. The residual meniscus was probed and was found to be stable. The residual osteochondral surface was stable. There was good decompression of the synovitis. Scope and probe were then guided into the intercondylar notch. Cruciates were identified, probed and found to be stable. The scope and probe were then guided into lateral compartment. There was a radial tear mid bilateral meniscus. There was no significant chondromalacia present. There was some thick reactive synovitis anteriorly. I performed a partial lateral meniscectomy getting down to stable meniscal tissue. I performed a partial synovectomy decompressing the reactive synovitis. The residual meniscus was stable. There was good decompression of the synovitis. The scope was in guided back into the suprapatellar compartment. I introduced a motorized shaver into the suprapatellar compartment. I debrided some piecemeal fragments of meniscus I encountered. I performed a chondroplasty of the femoral sulcus getting down to stable osteochondral tissue. I did note an area of grade IV chondromalacia there was exposed bone measuring 1.2 cm x 8 mm. I also performed a chondroplasty of the patella getting down to stable osteochondral tissue. I now performed a partial synovectomy decompressing the reactive synovitis throughout the suprapatellar compartment. I now introduced a microfracture awl and I performed a microfracture to the area of exposed bone femoral sulcus penetrating the bone with resultant bleeding at the microfracture site. The residual ost eochondral surface was probed and was found to be stable. The residual osteochondral surface of the patella was stable. There was good decompression of the synovitis. I now took 1 more look around the entire knee, no residual debris. Instruments were now removed from the joint. The joint was infiltrated with .25% Marcaine. Steri-Strips were applied to the portal sites. Sterile dressings were applied. The patient was placed into a KRISHAN hose. No tourniquet was utilized. The patient was awakened, transferred to a bed and taken to recovery stable satisfactory condition.
[2024-03-03] MEDS: HYDROcodone/APAP 5-325MG 1 EACH TAB PO STA (09:13)
[2024-03-03 09:38] VITALS: RESP 16
[2024-03-03 09:53] VITALS: BP 127/74; PULSE 76
== END 2024-03-03 10:06 | disposition home or self-care (01) ==
LOC: OR 06:03
PROVIDERS: ATTEND Orthopaedic Surgery
DX: S83.241A Other tear of medial meniscus, current injury, right knee, initial encounter (principal); S83.281A Other tear of lateral meniscus, current injury, right knee, initial encounter; M22.41 Chondromalacia patellae, right knee; M65.861 Other synovitis and tenosynovitis, right lower leg; M17.11 Unilateral primary osteoarthritis, right knee; K21.9 Gastro-esophageal reflux disease without esophagitis; X58.XXXA Exposure to other specified factors, initial encounter
CPT/HCPCS: 29879; 29880; 29876; J2250; J0330; J1100; J0690; J2405; J2001; J3010; J3490; J1885; J2704; J0665

== ENCOUNTER → 2024-12-02 | Outpatient (CLI) | payer OTHER ==
[2024-12-02 16:31] VITALS: BP 122/81; PULSE 88; RESP 16; TEMP 98
--- NOTE | 2024-12-02 18:07 | P.PROGSL ---
Subjective DATE: 12/02/2024 FOLLOW UP VISIT. Patient returned to sleep center for follow-up visit. Patient had home sleep apnea test in August 2023, but for different reasons did not receive CPAP treatment. Home sleep apnea test at that time showed severe obstructive sleep apnea hypopnea syndrome. I explained results of home sleep apnea test to the patient in details. Patient continued to snore, has multiple awakenings from sleep. [place] sleepiness scale is in high range of 19. I discussed with patient different options for treatment of obstructive sleep apnea including losing weight, throat surgery, oral appliances treatment, inspire treatment including indications and contraindications. MEDICATIONS: None During physical exam: GENERAL: A pleasant patient without any distress. VITAL SIGNS: See below, weight 260 pounds, BMI 43.2. HEENT: PERRLA, EOMI. NECK: Supple. No JVD. LUNGS: Clear to percussion and to auscultation. Good air exchange. No wheezing or rhonchi. HEART: S1, S2 regular. ABDOMEN: Soft and nontender. EXTREMITIES: No clubbing or cyanosis. LABORER WRECKING AND SALVAGING: Awake, alert, and oriented x3. No focal deficit. Impressions: 1. Severe obstructive sleep apnea hypopnea syndrome by results of home sleep apnea test in August 2023. 2. Obesity, BMI 43.2. 3. Acid reflux. 4. History of knee problems, status post right knee surgery. Plan: 1. We will repeat home sleep apnea test, because results of home sleep apnea test in August 2023 will not allowed patient to receive treatment following standard of insurance . 2. Sleep hygiene with regular time in bed for at least 8 hours. 3. Losing weight 4. Precautions related to driving. No driving if feel any sleepiness. Patient is aware about civil and criminal liability for unsafe driving, promised to follow recommendations. 5. Following plan after reading home sleep apnea test. Thank you very much for allowing me to participate in the management of your patient. Pernell Oconnell MD, PhD, FAASM. Diplomat of [place] [employer], Sleep Medicine Board by [place] [employer] Professor Of [employer] [facility] [place] Objective - Vital Signs Vital Signs: Vital Signs Temp 98 F 12/02/24 16:30 Pulse 88 12/02/24 16:30 Resp 16 12/02/24 16:30 BP 122/81 12/02/24 16:30 Pulse Ox 97 12/02/24 16:30 FiO2 Intake & Output 12/01/24 12/02/24 12/02/24 18:59 06:59 18:59 Weight 117.934 kg Home Medications: Home Medications Medication Instructions Recorded Confirmed Type HYDROcodone/APAP 5-325MG [[place] 1 tab PO Q6HR PRN #12 tab 03/03/24 Rx 5-325]
== END ==
LOC: 3 N SLEEP 15:37
PROVIDERS: ATTEND Internal Medicine
DX: G47.33 Obstructive sleep apnea (adult) (pediatric) (principal); E66.9 Obesity, unspecified; K21.9 Gastro-esophageal reflux disease without esophagitis; Z68.41 Body mass index [BMI] 40.0-44.9, adult; Z96.651 Presence of right artificial knee joint
CPT/HCPCS: 99212

== ENCOUNTER → 2024-12-17 | Outpatient (CLI) | payer OTHER ==
--- NOTE | 2024-12-22 15:06 | P.PCN ---
Description of Procedure: CLINICAL: A home sleep apnea test has been done for confirmation of possible obstructive sleep apnea-hypopnea syndrome. DESCRIPTION OF PROCEDURE: RESULTS: Recording time was 8 hours 01 minutes. Evaluation time was 7 hours 49 minutes. Evaluation time is sufficient for making conclusion about results of the test. Raw data of sleep recording has been reviewed and is adequate. Respiratory channel showed 7 apneas and 260 hypopneas. Apnea-hypopnea index was 34.1 per hour. Pulse rate in the range between minimum 58, maximum 123, average 84 by computer calculation. Lowest desaturation was 82%. IMPRESSION: 1. Severe Obstructive Sleep Apnea Hypopnea Syndrome. Please see other impressions from consultation. PLAN: 1. The patient will be started on auto-PAP treatment for correction of respiratory abnormallities during sleep. 2. I will see patient for follow up visit to discuss results of the test, evaluate clinical response on treatment with PAP therapy and make any necessary adjustments related to mask fitting, pressure, and humidification. 3. Watching and losing weight. 4. Sleep hygiene with regular time in bed for at least 8 hours. 5. No driving if feeling any sleepiness. Thank you very much for allowing me to participate in the management of your patient. Sincerely, Pernell Oconnell MD, PhD, FAASM Diplomat of [place] [employer] Sleep Medicine Board of [place] [employer] Research And Development Technician [facility] [place] cc: Autumn Bang MD
== END ==
LOC: 3 N SLEEP 13:00
PROVIDERS: ATTEND Internal Medicine
DX: G47.33 Obstructive sleep apnea (adult) (pediatric) (principal)